=== PATIENT | female | born 1990 | race Caucasian/White ===

== ENCOUNTER 2018-02-11 06:59 | Inpatient (IN) | payer MEDICAID ==
[~2018-02-11] VITALS: Ht 160 cm; Wt 69.9 kg
[2018-02-11] MEDS ORDERED: PNV11TAB3 PO (08:08)
[2018-02-11] MEDS ORDERED: LACTATED RINGERS 1,000 ML IV SCH (08:10)
[2018-02-11 09:33] LABS: APPEARANCE,URINE CLEAR (CLEAR); BILIRUBIN,URINE NEGATIVE (NEGATIVE); BLOOD, URINE NEGATIVE (NEGATIVE); COLOR,URINE YELLOW (YELLOW); LEUKOCYTE ESTERASE ,URINE NEGATIVE (NEGATIVE); NITRITE, URINE NEGATIVE (NEGATIVE); UGLUCOSE NEGATIVE (NEGATIVE)
[2018-02-11 10:10] LABS: HEMATOCRIT 40.2 % (36-48); HEMOGLOBIN 13.4 g/dL (12.0-16.0); MEAN CORPUSCULAR HEMOGLOBIN 31 pg (27-31); MEAN CORPUSCULAR HGB CONC 33 g/dL (33-37); MEAN CORPUSCULAR VOLUME 91.5 fL (80-94); PLATELET COUNT (AUTO) 226 K/uL (140-450); RED BLOOD CELL COUNT(AUTO) 4.39 MIL/uL (4.20-5.40); RED CELL DISTRIBUTION WIDTH 13.8 % (11.6-13.7); WHITE BLOOD COUNT (AUTO) 6.8 K/uL (4.8-10.8)
--- NOTE | 2018-02-11 10:17 | NUR ---
PATIENT HAS BEEN SCREENED AND CATEGORIZED LOW NUTRITION RISK. PATIENT WILL BE SEEN WITHIN 7 DAYS OF ADMISSION. 02/17/[address]
[2018-02-11 10:36] LABS: LYMPHOCYTES % (MANUAL) 35 % (20-46); MONOCYTES % (MANUAL) 3 % (5-12)
[2018-02-11] MEDS ORDERED: ONDANSETRON 4 MG/2 ML VIAL ONE (10:55)
[2018-02-11] MEDS ORDERED: BUPIVACAINE-MPF 0.75% 10 ML VIAL INJ ONE (10:55)
[2018-02-11] MEDS ORDERED: OXYTOCIN 10 UNITS/ML VIAL ONE (10:55)
[2018-02-11] MEDS ORDERED: ePHEDrine 50 MG/ML VIAL ONE (10:55)
[2018-02-11] MEDS ORDERED: fentaNYL 0.05 MG/ML VIAL ONE (11:02)
[2018-02-11] MEDS ORDERED: MIDAZOLAM 2 MG/2 ML VIAL ONE (11:02)
[2018-02-11] MEDS ORDERED: KETAMINE 500 MG/5 ML VIAL ONE (11:02)
[2018-02-11] MEDS ORDERED: MORPHINE PRES FREE 10 MG/10 ML AMP IV ONE (11:03)
[2018-02-11] MEDS ORDERED: KETOROLAC 30 MG/ML VIAL IVP PRN ×3 (13:10→13:55)
[2018-02-11] MEDS ORDERED: diphenhydrAMINE 50 MG/ML VIAL IVP PRN ×2 (13:10→13:15)
[2018-02-11] MEDS ORDERED: ONDANSETRON 4 MG/2 ML VIAL IVP PRN ×2 (13:10→13:15)
[2018-02-11] MEDS ORDERED: MEASLES, MUMPS, AND RUBELLA 1 VIAL SQVAC PRN (13:55)
[2018-02-11] MEDS: OXYTOCIN 20 UNITS in LACTATED RINGERS 1,000 ML IV SCH (19:52)
[2018-02-12] MEDS: OXYTOCIN 20 UNITS in LACTATED RINGERS 1,000 ML IV SCH (03:26)
[2018-02-12] MEDS ORDERED: HYDROmorphone PFS 2 MG/ML SYR IVP PRN (06:00)
[2018-02-12 07:52] LABS: EOSINOPHILS # (AUTO) 0.1 K/uL (0-0.4); HEMATOCRIT 36.6 % (36-48); HEMOGLOBIN 12.4 g/dL (12.0-16.0); LYMPHOCYTES # (AUTO) 1.6 K/uL (2.5-16.5); MEAN CORPUSCULAR HEMOGLOBIN 32 pg (27-31); MEAN CORPUSCULAR HGB CONC 34 g/dL (33-37); MEAN CORPUSCULAR VOLUME 93.2 fL (80-94); MONOCYTES # (AUTO) 0.5 K/uL (0.8-1.0); NEUTROPHILS # (AUTO) 6.3 K/uL (1.8-7.7); PLATELET COUNT (AUTO) 156 K/uL (140-450); RED BLOOD CELL COUNT(AUTO) 3.93 MIL/uL (4.20-5.40); RED CELL DISTRIBUTION WIDTH 14.2 % (11.6-13.7); WHITE BLOOD COUNT (AUTO) 8.5 K/uL (4.8-10.8)
[2018-02-12 07:57] LABS: BASOPHILS % (AUTO) 0.5 % (0.0-2.0); EOSINOPHILS % (AUTO) 0.6 % (0.0-4.0); MONOCYTES % (AUTO) 6.1 % (1.7-9.3); NEUTROPHILS % (AUTO) 73.8 % (42.2-75.2)
[2018-02-12] MEDS ORDERED: ACETAMINOPHEN 325 MG TAB PO PRN (22:00)
[2018-02-13] MEDS ORDERED: IBUPROFEN 600 MG TAB PO PRN (08:00)
[2018-02-13] MEDS ORDERED: SODIUM PHOSPHATE 118 ML ENEM RC PRN (08:00)
[2018-02-13] MEDS ORDERED: SIMETHICONE 80 MG TAB.CHEW PO PRN (08:00)
[2018-02-13] MEDS ORDERED: BISACODYL 5 MG TABEC PO PRN (08:00)
[2018-02-13] MEDS ORDERED: oxyCODONE/APAP 5/325 MG 1 TAB TAB PO PRN (08:00)
[2018-02-13] MEDS ORDERED: DOCUSATE SODIUM 100 MG GELCAP PO PRN (08:00)
== END 2018-02-15 21:35 | disposition home or self-care (01) | DRG 540 ==
LOC: MLD 06:59 → MFCC 10:50
PROVIDERS: ADMIT Obstetrics & Gynecology; ATTEND Obstetrics & Gynecology
PROC: 10D00Z1 Extraction of Products of Conception, Low, Open Approach (ICD-10-PCS; principal; 2018-02-11 10:30)
DX: O34.211 Maternal care for low transverse scar from previous cesarean delivery (principal); O99.824 Streptococcus B carrier state complicating childbirth; O69.81X0 Labor and delivery complicated by cord around neck, without compression, not applicable or unspecified; Z37.0 Single live birth; Z3A.38 38 weeks gestation of pregnancy; Z83.3 Family history of diabetes mellitus; Z80.42 Family history of malignant neoplasm of prostate; Z80.3 Family history of malignant neoplasm of breast; Z28.21 Immunization not carried out because of patient refusal
CPT/HCPCS: 36415; 81003; 85025; 86592; 86886; 86900; 86901; 87081; 87086; J0690; J1885; J2250; J2270; J2405; J2590; J3010; J3490; J7060; J7120